=== PATIENT | male | born 1975 | race Caucasian/White ===

== ENCOUNTER 2021-08-31 16:41 | Emergency (ER) | payer OTHER ==
[~2021-08-31 16:41] MED LIST: FLOMAX 0.4 MG0.4 MG PO; IBUPROFEN800 MG PO; PERCOCET 5-3251 EACH PO; ZOFRAN4 MG SL
[2021-08-31] MEDS ORDERED: CYCLOBENZAPRINE10 MG PO ×2 (19:08→20:41)
[2021-08-31] MEDS ORDERED: MEDROL 4MG DOSEP4 MG PO ×2 (19:08→20:41)
== END 2021-08-31 19:34 | disposition home or self-care (01) ==
LOC: FER 16:41
DX: S13.4XXA Sprain of ligaments of cervical spine, initial encounter (principal); S33.5XXA Sprain of ligaments of lumbar spine, initial encounter; S23.3XXA Sprain of ligaments of thoracic spine, initial encounter; S00.83XA Contusion of other part of head, initial encounter; V49.40XA Driver injured in collision with unspecified motor vehicles in traffic accident, initial encounter
CPT/HCPCS: 70450; 72125; 72128; 72131